=== PATIENT | female | born 1980 | race Caucasian/White ===

== ENCOUNTER → 2016-11-25 | Outpatient (CLI) | payer BC, OTHER ==
--- NOTE | 2016-11-25 08:46 | US ---
EXAMINATION TYPE: US abdomen complete DATE OF EXAM: 11/25/2016 COMPARISON: CT 2012 CLINICAL HISTORY: R10.9 Abd pain. Right lateral ABD pain x 2 months; had fever and diarrhea then; gal lbladder removed 2006 EXAM MEASUREMENTS: Liver Length: 16.3 cm Gallbladder Wall: surgically removed CBD: 0.4 cm Spleen: 10.5 cm Right Kidney: 10.0 x 4.8 x 3.9 cm Left Kidney: 9.8 x 4.6 x 4.9 cm Pancreas: hyperechoic Liver: fatty as is hyperechoic to right renal cortex Gallbladder: surgically removed Evidence for sonographic Dao's sign: No CBD: wnl Spleen: wnl Right Kidney: wnl Left Kidney: wnl Upper IVC: wnl Abd Aorta: wnl IMPRESSION: 1. No acute abnormality right upper quadrant ultrasound. 2. Moderate fatty infiltration of the liver.
== END | disposition home or self-care (01) ==
LOC: RADUSWWP 07:31
PROVIDERS: ATTEND Pediatrics
DX: K76.0 Fatty (change of) liver, not elsewhere classified (principal)
CPT/HCPCS: 76700

== ENCOUNTER 2018-02-09 09:51 | Day surgery (SDC) | payer BC ==
[2018-02-05 13:54] VITALS: BMI 28.3
[~2018-02-09 09:51] MED LIST: LACTATED RINGERS 1,000 ML IV SCH
[2018-02-09 10:41] VITALS: RESP 16; TEMP 98.9
[2018-02-09] MEDS ORDERED: LIDOCAINE 1% INJ 10MG/ML (20 ML MDV) ONE (12:02)
[2018-02-09] MEDS ORDERED: PROPOFOL 10 MG/ML 20 ML VIAL IV ONE (12:02)
--- NOTE | 2018-02-09 12:35 | P.PCN ---
Date of Procedure: 02/09/18 Procedure(s) Performed: Procedure: Colonoscopy and biopsy. Preoperative diagnosis: Chronic diarrhea. Postoperative diagnosis: 1. Exam of the colon and terminal ileum within normal limits. 2. Biopsies obtained from the terminal ileum and randomly from the colon. Preparation: HalfLytely prep. Sedation: Was provided by anesthesia. Brief clinical history: The patient is a 37-year-old female who is scheduled for this evaluation because of history of diarrhea of more than 2 years duration. The purpose is to rule out inflammatory bowel disease or other pathology. Procedure: With the patient on her left lateral decubitus position and after informed consent and adequate sedation, the perianal area was inspected and it did not show any fissures or fistulas. There were no masses felt on digital rectal examination. The Olympus CFQ 160L video colonoscope was then inserted in the rectum in the usual fashion and advanced to the cecum. I intubated the ileocecal valve and examined the terminal ileum. Terminal ileum and colon appeared healthy with no edema, erythema, friability, ulceration, exudation or spontaneous bleeding. No polyps or tumors were seen. No obvious diverticular disease or other pathology. I retroflexed the endoscope in the rectum before the endoscope was withdrawn. The patient tolerated the procedure well. Plan: The patient was reassured. Will await biopsy results. She will follow- up in the office early next month and we will keep you updated on her progress. She will follow-up with you as planned.
[2018-02-09 12:53] VITALS: BP 129/90; PULSE 85
== END 2018-02-09 13:34 | disposition home or self-care (01) ==
LOC: ORWHC2ENDO 09:51
DX: K58.0 Irritable bowel syndrome with diarrhea (principal); Z79.899 Other long term (current) drug therapy; Z98.51 Tubal ligation status
CPT/HCPCS: 81025; 88305; 45380; J2001; J2704

== ENCOUNTER → 2020-02-23 | Outpatient (CLI) | payer BC ==
--- NOTE | 2020-02-23 12:49 | US ---
EXAMINATION TYPE: US abdomen limited DATE OF EXAM: 02/23/2020 COMPARISON: US abdomen 11/25/2016 CLINICAL HISTORY: R10.31 RLQ Pain R19.03. 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 No evidence of hernia/or focal abnormality in area of patient's concern. IMPRESSION: 1. Fatty liver. 2. No evidence of hernia or focal abnormality in patient's reported area of concern.
== END | disposition home or self-care (01) ==
LOC: RADUSWWP 07:33
PROVIDERS: ATTEND Pediatrics
DX: K76.0 Fatty (change of) liver, not elsewhere classified (principal); R19.03 Right lower quadrant abdominal swelling, mass and lump
CPT/HCPCS: 76705

== ENCOUNTER → 2020-06-14 | Outpatient (CLI) | payer BC ==
[2020-06-14 12:40] LABS: Basophils % (A) 1 %; Eosinophils # (A) 0.1 k/uL (0-0.7); Eosinophils % (A) 1 %; HCT 44.3 % (34.0-46.0); HGB 14.9 gm/dL (11.4-16.0); Lymphocytes # (A) 2.5 k/uL (1.0-4.8); Lymphocytes % (A) 37 %; MCH 31.2 pg (25.0-35.0); MCHC 33.6 g/dL (31.0-37.0); MCV 93.1 fL (80.0-100.0); Monocytes # (A) 0.4 k/uL (0-1.0); Monocytes % (A) 6 %; Neutrophils # (A) 3.7 k/uL (1.3-7.7); Neutrophils % (A) 54 %; Platelet Count 379 k/uL (150-450); RBC 4.76 m/uL (3.80-5.40); RDW 12.3 % (11.5-15.5); WBC 6.9 k/uL (3.8-10.6)
[2020-06-14 12:54] LABS: African American GFR (CKD) >90 (>60 ml/min/1.73 sqM); Anion Gap 12 mmol/L; Blood Urea Nitrogen 15 mg/dL (7-17); Carbon Dioxide 25 mmol/L (22-30); Chloride 103 mmol/L (98-107); Glucose 106 mg/dL (74-99); Non-African American GFR(CKD) 89 (>60 ml/min/1.73 sqM); Potassium 4.5 mmol/L (3.5-5.1); Sodium 140 mmol/L (137-145)
== END | disposition home or self-care (01) ==
LOC: LABPAT 11:37
PROVIDERS: ATTEND Obstetrics & Gynecology
DX: Z01.818 Encounter for other preprocedural examination (principal)
CPT/HCPCS: 36415; 80048; 85025

== ENCOUNTER 2020-06-25 05:35 | Inpatient (IN) | payer BC ==
[2020-06-18 12:56] VITALS: BMI 29.2
--- NOTE | 2020-06-24 14:32 | P.HPOB ---
History of Present Illness H&P Date: 06/24/20 Chief Complaint: Dysmenorrhea, menorrhagia, pelvic pain This is a 39 y.o. female, 3, para 3, who presents for total abdominal hysterectomy with bilateral salpingectomy due to menorrhagia with irregular menses, dysmenorrhea and pelvic pain. She complains of 10 month history of irregular menses, intermenstrual bleeding and painful menses. Pelvic pain is throughout her cycle and making it difficult to work. Pelvic ultrasound showed uterus 10.6 x 7 x 5.1 cm with 3 small fibroid, the largest 2.5 cm. Her left ovary had a small 1.7 cm cyst. She has previously had an endometrial ablation in 2015 and has had a tubal ligation. Her bleeding only stops for a couple days in a row and then starts back up again. OB Hx: . History of 3 vaginal deliveries Filterer Hx: No hx of STDs. History of tubal ligation. Social Hx: . 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 Review of Systems Constitutional: Reports fatigue, Denies chills, Denies fever Eyes: denies blurred vision, denies pain Ears, nose, mouth and throat: Denies headache, Denies sore throat Cardiovascular: Denies chest pain, Denies shortness of breath Respiratory: Denies cough Gastrointestinal: Denies abdominal pain, Denies diarrhea, Denies nausea, Denies vomiting Genitourinary: Reports dysmenorrhea, Reports pelvic pain Menstruation: Reports menses 8 or > days, Reports menses variable Musculoskeletal: Denies myalgias Integumentary: Denies pruritus, Denies rash Neurological: Denies numbness, Denies weakness Psychiatric: Denies anxiety, Denies depression Endocrine: Reports fatigue, Denies weight change Past Medical History Past Medical History: No Reported History Additional Past Medical History / Comment(s): IBS, seasonal allergies, heavy frequent periods History of Any Multi-Drug Resistant Organisms: None Reported Past Surgical History: Cholecystectomy, Tubal Ligation, Uterine Ablation Past Anesthesia/Blood Transfusion Reactions: No Reported Reaction Past Psychological History: No Psychological Hx Reported Smoking Status: Never smoker Past Alcohol Use History: None Reported Past Drug Use History: None Reported - Past Family History Mother Family Medical History: No Reported History Medications and Allergies Home Medications Medication Instructions Recorded Confirmed Type Acetaminophen [Tylenol] 325 mg PO Q4H PRN 06/18/20 06/18/20 History Allergies Allergy/AdvReac Type Severity Reaction Status Date / Time hydrocodone [From [place]] AdvReac Hallucinati Verified 06/18/20 12:59 ons Exam Osteopathic Statement: *. No significant issues noted on an osteopathic structural exam other than those noted in the History and Physical/Consult. HEENT: within normal limits Heart: regular rate and rhythm Lungs: clear to auscultation bilaterally Abdomen: soft, non-tender Pelvic: uterus mildly tender, anteverted, no adnexal masses, bilateral adnexal tenderness Extremities: neg. Ruthie's Assessment and Plan (1) Dysmenorrhea Current Visit: No Status: Acute Code(s): N94.6 - DYSMENORRHEA, UNSPECIFIED SNOMED Code(s): 399459535 (2) Pelvic pain Current Visit: No Status: Acute Code(s): R10.2 - PELVIC AND PERINEAL PAIN SNOMED Code(s): 81462495 (3) Menorrhagia with irregular cycle Current Visit: No Status: Acute Code(s): N92.1 - EXCESSIVE AND FREQUENT MENSTRUATION WITH IRREGULAR CYCLE SNOMED Code(s): 716222705 Plan: Proceed with total abdominal hysterectomy with bilateral salpingectomy. I have discussed the risks, benefits, and alternative therapies for the above- mentioned procedure and for both sedation/anesthesia as well as necessary blood products administration, if indicated, as they pertain to this patient. The patient has indicated her understanding and acceptance of the risks and procedu res discussed.
[2020-06-25] MEDS ORDERED: LIDOCAINE 1% (10MG/ML) FOR IV START INTRADERMA PRN (05:41)
[2020-06-25] MEDS ORDERED: HYDROmorphone 0.5 MG/0.5 ML SYRINGE IVP PRN ×2 (05:41→07:31)
[2020-06-25] MEDS ORDERED: LACTATED RINGERS 1,000 ML IV SCH (05:41)
[2020-06-25] MEDS ORDERED: MIDAZOLAM 2 MG/2 ML VIAL IV PRN (05:41)
[2020-06-25] MEDS ORDERED: ONDANSETRON 4 MG/2 ML VIAL IVP ONE ×2 (05:41→09:42)
[2020-06-25] MEDS ORDERED: DEXAMETHASONE SOD PHOSPHATE 4 MG/ML 1 ML VIAL IV ONE (05:41)
[2020-06-25] MEDS ORDERED: MIDAZOLAM 2 MG/2 ML VIAL ONE (07:26)
[2020-06-25] MEDS ORDERED: HYDROmorphone (PF) 1 MG/ML ONE (07:26)
[2020-06-25] MEDS ORDERED: ROCURONIUM 10 MG/ML (5 ML VIAL) IV ONE (07:26)
[2020-06-25] MEDS ORDERED: NEOSTIGMINE 1 MG/ML 10 ML VIAL ONE (07:26)
[2020-06-25] MEDS ORDERED: fentaNYL (PF) 50 MCG/ML 2 ML AMP ONE (07:26)
[2020-06-25] MEDS ORDERED: PROPOFOL 10 MG/ML 20 ML VIAL IV ONE (07:26)
[2020-06-25] MEDS ORDERED: SUCCINYLCHOLINE CHLORIDE 100 MG/5 ML SYR IV ONE (07:26)
[2020-06-25] MEDS ORDERED: LIDOCAINE 1% INJ 10MG/ML (20 ML MDV) ONE (07:26)
[2020-06-25] MEDS ORDERED: GLYCOPYRROLATE 0.2 MG/ML 2 ML VIAL ONE (07:26)
[2020-06-25] MEDS ORDERED: NALBUPHINE 10 MG/ML (1 ML AMP) IV PRN (07:31)
[2020-06-25] MEDS ORDERED: NALOXONE 0.4 MG/ML 1 ML VIAL IV PRN (07:31)
--- NOTE | 2020-06-25 07:31 | P.ANPRN ---
Procedure Note - Anesthesia - Epidural/Spinal Spinal Date of Procedure: 06/25/20 Procedure Start Time: 07:01 Procedure Stop Time: 07:10 Location of Patient: PreOp Indication: Requested by Surgeon Sedation Type: Sedate with meaningful contact maintained Preparation: Sterile Prep Position: Sitting Catheter: None Needle Guage: 25 Blood Aspirated: No Pain Paresthesia on Injection Noted: No Events: Other (see comment) (Duramorph 0.3 mg, and Fentanyl 10 mcg)
[2020-06-25] MEDS ORDERED: LACTATED RINGERS 1,000 ML IV ONE (08:26)
--- NOTE | 2020-06-25 08:51 | P.OP ---
Date of Procedure: 06/25/20 Preoperative Diagnosis: Menorrhagia with irregular cycle Dysmenorrhea Pelvic pain Postoperative Diagnosis: Same Procedure(s) Performed: Total abdominal hysterectomy with bilateral salpingectomy Anesthesia: CARA Surgeon: Natacha Kirby Shift Coordinator #1: Bimal Manning Estimated Blood Loss (ml): 250 Pathology: other (Uterus with cervix, bilateral fallopian tubes) Condition: stable Disposition: floor Indications for Procedure: This is a 39 y.o. female, 3, para 3, who presents for total abdominal hysterectomy with bilateral salpingectomy due to menorrhagia with irregular menses, dysmenorrhea and pelvic pain. She complains of 10 month history of irr egular menses, intermenstrual bleeding and painful menses. Pelvic pain is throughout her cycle and making it difficult to work. Pelvic ultrasound showed uterus 10.6 x 7 x 5.1 cm with 3 small fibroid, the largest 2.5 cm. Her left ovary had a small 1.7 cm cyst. She has previously had an endometrial ablation in 2014 and has had a tubal ligation. Her bleeding only stops for a couple days in a row and then starts back up again. Operative Findings: Uterus is slightly enlarged with some small fibroids noted. Both ovaries appeared normal. Both portions of fallopian tubes did appear normal. Description of Procedure: The patient is taken to the operating room where she is placed in the dorsal supine position. She is prepped and draped in the normal sterile fashion including Mejía catheter insertion and vaginal prep. A Pfannenstiel skin incision is made scar with a scalpel. A second knife was used to carry the incision down to the underlying layer of fascia. The fascia was nicked in the midline with a scalpel and then extended laterally bilaterally with Lloyd scissors. The superior aspect of the fascial incision was grasped with Emmanuel clamps, elevated off the underlying rectus muscle in the midline and then cut with Lloyd scissors. The inferior aspect of the fascial incision was grasped with Emmanuel clamps, elevated off the underlying rectus muscle in the midline and then cut with Lloyd scissors. Next the peritoneum was identified and entered sharply with a scalpel. It is extended superiorly and in fairly with Metzenbaum scissors with good visualization of underlying structures. Next the Ashby retractor is placed in the bladder blade was inserted. The bowels were packed with a 3 yard laparotomy sponge. Next the uterus is brought up to the incision and the corneal regions are grasped with Lien clamps on both sides. Next the distal portion of the fallopian tube on the left side is brought up to the incision and the mesosalpinx is clamped with a Lorie clamp. This is cut with Lloyd scissors and then sutured with 0 Vicryl suture in Lorie transfixion stitch. The piece of tube was removed from the field and sent with the remaining specimen. Next the uterine ovarian ligament is clamped with a Lorie clamp, cut with Lloyd scissors, and then sutured with 0 Vicryl suture in Lorie transfixion stitch. The same procedure is carried out on the right side. The uterine arteries are then clamped with Lorie clamp on either side. The vesicouterine peritoneum was sharply dissected away from the bladder with Metzenbaum scissors and pushed inferiorly. The uterine arteries are then cut with Lloyd scissors, and sutured with 0 Vicryl suture in Lorie transfixion stitches. Next the cardinal ligaments were clamped on either side with Lorie clamp, cut with Lloyd scissors, and sutured with 0 Vicryl suture in Lorie transfixion stitches. The uterosacral ligaments are clamped on either side with Lorie clamps, cut with Lloyd scissors, and sutured with 0 Vicryl suture in Lorie transfixion stitches on either side. The edges of the vaginal cuff were clamped on either side with a Lorie clamp, cut with Lloyd scissors, and sutured with 0 Vicryl suture in Lorie transfixion stitches and held on either side. The vaginal mucosa was then cut just below the level of the cervix and the specimen is removed from the field. The edges of the vaginal cuff were held with Emmanuel clamps. Next the previously held corners of each side of the vaginal cuff were then whipstitched along the connective tissue on either side and brought through the corner of the cuff and tied. Next the vaginal cuff was sutured with 0 Vicryl suture in a running locked fashion. Hemostasis was noted. Copious irrigation is carried out with warm saline. There was some bleeding along the area where the tube was removed on the left side. The raw edge was whipstitched with 0 Vicryl suture and good hemostasis was noted. Copious irr igation is carried out. Good hemostasis is noted at this time. All sponges are removed from the abdomen. The peritoneum is then closed with 0 Vicryl suture in a running fashion. The muscle was then reapproximated with 0 Vicryl suture in interrupted fashion. The fascia layer is then closed with 0 PDS suture in a running fashion with the knots buried on either side and in the midline. Next the subcutaneous tissues closed with 2-0 Vicryl suture in a running fashion. The skin is closed with cecy. All sponge and needle counts are correct and the patient is taken to recovery room in stable condition.
[2020-06-25] MEDS ORDERED: SIMETHICONE 80 MG CHEWABLE PO PRN (10:20)
[2020-06-25] MEDS ORDERED: KETOROLAC 15 MG/ML 1 ML VIAL IVP PRN (10:20)
[2020-06-25] MEDS ORDERED: METOCLOPRAMIDE 5 MG/ML 2 ML VIAL IVP PRN (10:20)
[2020-06-25] MEDS ORDERED: ONDANSETRON 4 MG/2 ML VIAL IVP PRN (10:20)
[2020-06-25] MEDS ORDERED: Acetaminophen-Codeine 300-30mg TAB PO PRN (10:20)
[2020-06-25] MEDS ORDERED: ZOLPIDEM 5 MG TAB PO PRN (10:20)
[2020-06-25] MEDS: LACTATED RINGERS 1,000 ML IV SCH ×3 (10:34→19:58)
[2020-06-25] MEDS: KETOROLAC 15 MG/ML 1 ML VIAL IVP PRN ×3 (10:37→22:53)
[2020-06-25] MEDS: diphenhydrAMINE 50 MG/ML 1 ML VIAL IVP PRN ×2 (11:16→20:11)
[2020-06-25] MEDS: SENNOSIDES-DOCUSATE SODIUM 1 EACH TAB PO SCH ×2 (11:17→19:58)
[2020-06-26] MEDS: KETOROLAC 15 MG/ML 1 ML VIAL IVP PRN (05:03)
[2020-06-26] MEDS: LACTATED RINGERS 1,000 ML IV SCH (06:08)
--- NOTE | 2020-06-26 06:30 | P.PN ---
Progress Note - Text Progress Note Date: 06/26/20 Postoperative day 1 status post NIC under general anesthesia, and intrathecal morphine given for postoperative analgesia, patient doing well, there is no anesthesia related complications Patient had no headache, vital signs stable Assessment and plan = postop day 1 status post NIC, doing well there is no anesthesia related complication
[2020-06-26 07:19] LABS: Basophils % (A) 0 %; Eosinophils % (A) 0 %; HCT 26.4 % (34.0-46.0); Lymphocytes # (A) 1.7 k/uL (1.0-4.8); Lymphocytes % (A) 16 %; MCH 30.9 pg (25.0-35.0); MCHC 33.3 g/dL (31.0-37.0); MCV 92.9 fL (80.0-100.0); Mean Platelet Volume 7.7; Monocytes # (A) 0.9 k/uL (0-1.0); Monocytes % (A) 8 %; Neutrophils # (A) 7.8 k/uL (1.3-7.7); Neutrophils % (A) 74 %; Platelet Count 277 k/uL (150-450); RBC 2.84 m/uL (3.80-5.40); RDW 12.8 % (11.5-15.5); WBC 10.5 k/uL (3.8-10.6)
[2020-06-26 07:25] LABS: HGB 8.8 gm/dL (11.4-16.0)
--- NOTE | 2020-06-26 09:00 | P.PN ---
Subjective Progress Note Date: 06/26/20 Principal diagnosis: Status post NIC with bilateral salpingectomy postoperative day #1 Patient is doing okay. She is feeling a little dizzy and lightheaded with ambulating. She denies any vomiting. Bleeding has been minimal. Pain is been fairly well controlled at this time. She is passing flatus but no bowel movement yet. Objective - Vital Signs Vital signs: Vital Signs Temp 98.2 F 06/26/20 07:57 Pulse 118 H 06/26/20 07:57 Resp 18 06/26/20 07:57 BP 100/68 06/26/20 07:57 Pulse Ox 96 06/26/20 07:57 Intake & Output 06/25/20 06/26/20 06/26/20 18:59 06:59 18:59 Intake Total 1350 Output Total 550 500 Balance 800 -500 Intake: IV 1350 Output: Urine 300 500 Uretheral (Mejía) 90 500 Estimated Blood Loss 250 Other: Voiding Method Indwelling Catheter - Constitutional General appearance: Present: no acute distress - Gastrointestinal Gastrointestinal Comment(s): Incision is clean dry and intact with cecy in place. Mariluz-pad shows scant serosanguineous dried discharge. General gastrointestinal: Present: normal bowel sounds - Labs CBC & Chem 7: 06/26/20 06:01 Labs: Abnormal Lab Results - Last 24 Hours (Table) 06/26/20 Range/Units 06:01 RBC 2.84 L (3.80-5.40) m/uL Hgb 8.8 L D (11.4-16.0) gm/dL Hct 26.4 L (34.0-46.0) % Neutrophils # 7.8 H (1.3-7.7) k/uL Assessment and Plan Assessment: Status post NIC with bilateral salpingectomy postoperative day #1 Blood loss anemia (1) Dysmenorrhea Current Visit: No Status: Acute Code(s): N94.6 - DYSMENORRHEA, UNSPECIFIED SNOMED Code(s): 425447930 (2) Pelvic pain Current Visit: No Status: Acute Code(s): R10.2 - PELVIC AND PERINEAL PAIN SNOMED Code(s): 16091152 (3) Menorrhagia with irregular cycle Current Visit: No Status: Acute Code(s): N92.1 - EXCESSIVE AND FREQUENT MENSTRUATION WITH IRREGULAR CYCLE SNOMED Code(s): 825436839 Plan: Continue with postoperative care today. We will encourage ambulation with assistance. Patient is advised that if she does feel too dizzy or short of breath with ambulation, we will consider giving one unit of blood. Will advance diet as tolerated.
[2020-06-26] MEDS: IBUPROFEN 600 MG TAB PO PRN ×3 (11:24→23:20)
[2020-06-26] MEDS: SENNOSIDES-DOCUSATE SODIUM 1 EACH TAB PO SCH ×2 (13:16→23:27)
[2020-06-26] MEDS: Acetaminophen-Codeine 300-30mg TAB PO PRN (20:17)
[2020-06-27] MEDS: Acetaminophen-Codeine 300-30mg TAB PO PRN ×3 (03:06→14:18)
[2020-06-27] MEDS: IBUPROFEN 600 MG TAB PO PRN ×2 (05:21→12:15)
[2020-06-27 06:19] LABS: Basophils % (A) 0 %; Eosinophils # (A) 0.1 k/uL (0-0.7); Eosinophils % (A) 1 %; HCT 23.9 % (34.0-46.0); Lymphocytes # (A) 1.7 k/uL (1.0-4.8); Lymphocytes % (A) 19 %; MCH 30.9 pg (25.0-35.0); MCHC 33.5 g/dL (31.0-37.0); MCV 92.2 fL (80.0-100.0); Mean Platelet Volume 7.6; Monocytes # (A) 0.5 k/uL (0-1.0); Monocytes % (A) 6 %; Neutrophils # (A) 6.5 k/uL (1.3-7.7); Neutrophils % (A) 73 %; Platelet Count 238 k/uL (150-450); RBC 2.59 m/uL (3.80-5.40); RDW 12.8 % (11.5-15.5); WBC 8.9 k/uL (3.8-10.6)
[2020-06-27 07:41] VITALS: BP 132/79; PULSE 117; TEMP 98.3
[2020-06-27] MEDS: SENNOSIDES-DOCUSATE SODIUM 1 EACH TAB PO SCH (08:38)
--- NOTE | 2020-06-27 08:54 | P.DS ---
Providers Date of admission: 06/25/20 05:35 Expected date of discharge: 06/27/20 Attending physician: Natacha Kirby Primary care physician: Modesto Potts - Discharge Diagnosis(es) (1) Dysmenorrhea Current Visit: No Status: Acute (2) Pelvic pain Current Visit: No Status: Acute (3) Menorrhagia with irregular cycle Current Visit: No Status: Acute Hospital Course: This is a 39-year-old female who underwent a total abdominal hysterectomy with bilateral salpingectomy on 06/25/2020. Postoperatively she did have a drop in her hemoglobin on postoperative day #1 down to 8.8. It has been stable on postoperative day #2 at 8. She does have a little bit of nausea when she walks across the room but denies any shortness of breath or dizziness. She is tolerating regular diet. She is taking ibuprofen and Motrin for pain. Bleeding has been very minimal. She is urinating and passing flatus but no bowel movement yet. Vital signs are stable. Abdomen is soft with positive bowel sounds 4. Incision is clean dry and intact with cecy in place. Extremities show negative Homans. Impression is status post total abdominal hysterectomy with bilateral salpingectomy postoperative day #2. Plan is to discharge home santino thakur today as long as she is feeling okay. Will give prescriptions for ibuprofen and Tylenol 3. She has been counseled regarding opioid use it has signed a consent form. She is advised to follow up in the office in 1 week for a postoperative check. She will also be given a prescription for iron. She is to continue restrictions of no lifting, no intercourse, no tub baths. She may shower. Diet as tolerated. Procedures: Total abdominal hysterectomy with bilateral salpingectomy postoperative day #2 Blood loss anemia Patient Condition at Discharge: Stable Plan - Discharge Summary Discharge Rx Participant: Yes New Discharge Prescriptions: New Ibuprofen [Motrin] 600 mg PO Q6HR PRN #60 tab PRN Reason: Mild Discomfort Ferrous Sulfate [Slow Fe] 142 mg PO DAILY #30 tablet.er Acetaminophen-Codeine 300-30mg [Tylenol w/codeine #3] 1 each PO Q4HR PRN #30 tab PRN Reason: Moderate Pain No Action Acetaminophen [Tylenol] 325 mg PO Q4H PRN PRN Reason: Pain Discharge Medication List Acetaminophen [Tylenol] 325 mg PO Q4H PRN 06/18/20 [History] Acetaminophen-Codeine 300-30mg [Tylenol w/codeine #3] 1 each PO Q4HR PRN #30 tab 06/27/20 [Rx] Ferrous Sulfate [Slow Fe] 142 mg PO DAILY #30 tablet.er 06/27/20 [Rx] Ibuprofen [Motrin] 600 mg PO Q6HR PRN #60 tab 06/27/20 [Rx] Follow up Appointment(s)/Referral(s): Natacha Kirby DO [Doctor of Osteopathic Medicine] - 1 Week Activity/Diet/Wound Care/Special Instructions: Activity as tolerated. Diet as tolerated. May shower, but no tub baths for 1 week. No intercourse for 6 weeks. No heavy lifting. Discharge Disposition: HOME SELF-CARE
[2020-06-27 14:04] VITALS: RESP 16
== END 2020-06-27 15:30 | disposition home or self-care (01) | DRG 742 ==
LOC: 2ORMAIN 05:35 → 4FBP 08:57
PROVIDERS: ADMIT Obstetrics & Gynecology; ATTEND Obstetrics & Gynecology
PROC: 0UTC0ZZ Resection of Cervix, Open Approach (ICD-10-PCS; principal; 2020-06-25 07:30)
PROC: 0UT90ZZ Resection of Uterus, Open Approach (ICD-10-PCS; principal; 2020-06-25 07:30)
PROC: 0UB70ZZ Excision of Bilateral Fallopian Tubes, Open Approach (ICD-10-PCS; principal; 2020-06-25 07:30)
DX: N92.0 Excessive and frequent menstruation with regular cycle (principal); D62 Acute posthemorrhagic anemia; N94.6 Dysmenorrhea, unspecified; J30.2 Other seasonal allergic rhinitis; D25.9 Leiomyoma of uterus, unspecified; K58.9 Irritable bowel syndrome, unspecified; Z98.51 Tubal ligation status; Z90.49 Acquired absence of other specified parts of digestive tract; Z98.890 Other specified postprocedural states; Z88.5 Allergy status to narcotic agent
CPT/HCPCS: 81025; 85025; 86850; 86900; 86901; 88307

== ENCOUNTER → 2020-08-23 | Outpatient (CLI) | payer BC ==
[2020-08-24 02:08] LABS: Luteinizing Hormone 6.3 mIU/mL
[2020-08-24 02:09] LABS: Estradiol 110.5 pg/mL; Follicle Stimulating Hormone 4.7 mIU/mL
== END | disposition home or self-care (01) ==
LOC: LABWHC1 11:02
PROVIDERS: ATTEND Obstetrics & Gynecology
DX: N95.1 Menopausal and female climacteric states (principal)
CPT/HCPCS: 36415; 82670; 83001; 83002